=== PATIENT | female | born 1935 | race Caucasian/White ===

== ENCOUNTER 2019-05-03 15:19 | Emergency (ER) | payer MEDICARE ==
[~2019-05-03] VITALS: Ht 154.9 cm; Wt 57.6 kg
[~2019-05-03 15:19] MED LIST: FAMO-132; GLU850; INSU100V9; LEVO25TA11; LISI20TA; LOVA40TA75
[2019-05-03 16:25] VITALS: BP_SYST 118
--- NOTE | 2019-05-03 16:32 | NUR ---
Patient triaged and placed in waiting room. VSS and patient appears in no acute distress at this time. Accompanied by , awaiting available bed, and MD notified of need for MSE.
--- NOTE | 2019-05-03 22:17 | NUR ---
[facility] Side rails up. Report given to Mariza MIKE.
--- NOTE | 2019-05-03 22:21 | NUR ---
Patient was BIB and ambulated to ER H1, c/o Right hip pain s/p fall 4 or 5 days ago. Pt states she was getting out of bed and one of her foot got caught and patient fell onto Right hip. Pt denies hitting head and losing consciousness. Patient c/o of 8/10 pain. NO other injuries/complaints per patient or noted.
--- NOTE | 2019-05-03 23:50 | NUR ---
ER Dr. Thakkar at bedside examining patient.
--- NOTE | 2019-05-04 02:03 | NUR ---
Patient given written and verbal discharge instructions and verbalizes understanding. ER MD discussed with patient the results and treatment provided. Patient in stable condition. ID arm band removed. Rx of Naprosyn given. Patient educated on pain management and to follow up with PMD. Pain Scale 6/10. Opportunity for questions provided and answered. Medication side effect fact sheet provided.
[2019-05-04 02:04] VITALS: BP_SYST 112
== END 2019-05-04 02:04 | disposition home or self-care (01) ==
LOC: SED 15:19
DX: S76.011A Strain of muscle, fascia and tendon of right hip, initial encounter (principal); E11.9 Type 2 diabetes mellitus without complications; E07.9 Disorder of thyroid, unspecified; I10 Essential (primary) hypertension; Z90.710 Acquired absence of both cervix and uterus; Z79.899 Other long term (current) drug therapy; Z88.0 Allergy status to penicillin; Z88.2 Allergy status to sulfonamides; Z91.018 Allergy to other foods; W18.39XA Other fall on same level, initial encounter; Y93.89 Activity, other specified; Y92.89 Other specified places as the place of occurrence of the external cause; Y99.8 Other external cause status
CPT/HCPCS: 72170-TC; 72192-TC; 82962; 99284

== ENCOUNTER 2020-09-13 02:34 | Emergency (ER) | payer MEDICARE, SELFPAY ==
[~2020-09-13] VITALS: Ht 160 cm; Wt 49.0 kg
[2020-09-13 02:37] VITALS: BP_SYST 113
--- NOTE | 2020-09-13 02:39 | NUR ---
Note torres in ED - 09/13/20 at 0304 by SDEDGS Patient to ER bed 1 to [facility] for evaluation. Side rails up.
--- NOTE | 2020-09-13 02:39 | NUR ---
Patient to ER bed 1 to gown for evaluation. Side rails up.
--- NOTE | 2020-09-13 03:01 | NUR ---
COVID-19 swabs collected and sent to lab.
--- NOTE | 2020-09-13 03:03 | NUR ---
Nate macdonald in ED - 09/13/20 at 0304 by SDEDGS KOLTON Thakkar at bedside examining patient.
--- NOTE | 2020-09-13 03:03 | NUR ---
ER Dr. Thakkar at bedside examining patient.
--- NOTE | 2020-09-13 03:08 | NUR ---
Patient 's family at bedside.
--- NOTE | 2020-09-13 03:18 | NUR ---
In and out cath, urine sample collected and sent to lab.
--- NOTE | 2020-09-13 03:24 | NUR ---
BS 122
[2020-09-13 03:30] LABS: BASOPHILS % (AUTO) 0.4 % (0.0-2.0); EOSINOPHILS # (AUTO) 0.2 K/uL (0.0-0.4); EOSINOPHILS % (AUTO) 2.5 % (0.0-4.0); HEMATOCRIT 28.7 % (36-48); HEMOGLOBIN 9.4 g/dL (12.0-16.0); LYMPHOCYTES # (AUTO) 0.9 K/uL (1.0-5.5); LYMPHOCYTES % (AUTO) 15.4 % (20.5-51.5); MEAN CORPUSCULAR HEMOGLOBIN 33 pg (27-31); MEAN CORPUSCULAR HGB CONC 33 % (32-36); MEAN CORPUSCULAR VOLUME 100 fL (79.0-98.0); MONOCYTES # (AUTO) 0.4 K/uL (0.0-1.0); MONOCYTES % (AUTO) 6.9 % (1.7-9.3); NEUTROPHILS # (AUTO) 4.5 K/uL (1.8-7.7); NEUTROPHILS % (AUTO) 74.8 % (40.0-70.0); PLATELET COUNT (AUTO) 277 K/uL (130-430); RED BLOOD CELL COUNT(AUTO) 2.88 MIL/uL (4.2-6.2); WHITE BLOOD COUNT (AUTO) 6.1 K/uL (4.8-10.8)
--- NOTE | 2020-09-13 03:43 | NUR ---
CXR at bedside.
[2020-09-13 03:46] LABS: BILIRUBIN,URINE NEGATIVE (NEGATIVE); BLOOD, URINE 2+ (NEGATIVE); CLARITY/URINE CLEAR (CLEAR); COLOR,URINE YELLOW (YELLOW); GLUCOSE,URINE 2+ (NEGATIVE); KETONES,URINE NEGATIVE (NEGATIVE); LEUKOCYTE ESTERASE ,URINE NEGATIVE (NEGATIVE); NITRITE, URINE NEGATIVE (NEGATIVE); PH,URINE 6.5 (5.0-8.0); PROTEIN URINE NEGATIVE (NEGATIVE); UROBILINOGEN,URINE 0.2 (0.2-1.0)
[2020-09-13 03:47] LABS: ANION GAP 12 (5-15); CALCIUM 9.1 mg/dL (8.4-11.0); CHLORIDE 104 mmol/L (98-107); CREATININE 1.18 mg/dL (0.55-1.30); GLUCOSE 156 mg/dL (70-99); POTASSIUM 3.7 mmol/L (3.5-5.1); SODIUM SERUM 141 mmol/L (136-145); UREA NITROGEN, BLOOD 28 mg/dL (8-21)
[2020-09-13 03:51] LABS: PROTHROMBIN TIME 9.9 SECS (9.5-12.5)
[2020-09-13 03:53] LABS: BACTERIA,URINE FEW /HPF (None Seen); WBC,URINE 0-3 /HPF (0-3)
[2020-09-13 03:58] LABS: BARBITURATE, URINE NEGATIVE (NEG <=200); BENZODIAZEPINE, URINE NEGATIVE (NEG <=150); CANNABINOID, URINE NEGATIVE (NEG <=50); COCAINE, URINE NEGATIVE (NEG <=150); METHAMPHETAMINES SCREEN,URINE NEGATIVE (NEG <=500); OPIATE, URINE NEGATIVE (NEG <=100); PHENCYCLIDINE SCREEN,URINE NEGATIVE (NEG <=25); UR TRICYCLIC ANTIDEPRESSANTS NEGATIVE (NEG <=300); URINE AMPHETAMINE NEGATIVE (NEG <=500); URINE METHADONE NEGATIVE (NEG <=200); URINE OXYCODONE SCREEN NEGATIVE (NEG <=100); URINE PROPOXYPHENE SCREEN NEGATIVE (NEG <=300)
[2020-09-13 04:03] LABS: ALANINE AMINOTRANSFERASE 27 U/L (12-78); ALBUMIN 3.3 g/dL (3.4-4.8); ASPARTATE AMINOTRANSFERASE 36 U/L (10-37); THYROID STIMULATING HORMONE 0.65 uIu/mL (0.36-3.74); TOTAL BILIRUBIN 0.2 mg/dL (0.0-1.0)
[2020-09-13 04:06] LABS: ALCOHOL, BLOOD < 3 mg/dL (<10)
--- NOTE | 2020-09-13 04:17 | NUR ---
Patient came back from CT scan.
[2020-09-13] MEDS ORDERED: NACL 0.9% 1,000 ML IV ONE (04:30)
--- NOTE | 2020-09-13 04:31 | NUR ---
BS 76, Dr. Thakkar notified.
--- NOTE | 2020-09-13 04:34 | NUR ---
Given two orange juice, sanwiches, and Carlosllo.
[2020-09-13] MEDS ORDERED: D5NS 1,000 ML IV ONE (04:45)
--- NOTE | 2020-09-13 05:02 | NUR ---
Provide bedpan as request
--- NOTE | 2020-09-13 05:27 | NUR ---
Provide bedside commode as request.
--- NOTE | 2020-09-13 05:41 | NUR ---
BS- 163, Dr. Thakkar notified.
--- NOTE | 2020-09-13 05:51 | NUR ---
Patient to be transferred to [facility]. Is being transferred due to higher level of care. Receiving facility has accepting physician and available space. ER physician has signed transfer form. Patient or responsible constitution party has agreed to transfer and signed form. Patient belongings inventoried and will be sent with patient. Copy of nursing notes, lab reports, EKG, Physicians Orders and X-rays to be sent with patient. Report called to CEE Yanes at receiving facility. Receiving physician is Dr. Gates. [facility] ambulance service has been called for transfer. ETA is 40 mins.
--- NOTE | 2020-09-13 06:29 | NUR ---
Patient will transfer to [facility] via [facility].
[2020-09-13 06:30] VITALS: BP_SYST 132
== END 2020-09-13 06:29 | disposition short-term general hospital (02) ==
LOC: SED 02:34
DX: E11.649 Type 2 diabetes mellitus with hypoglycemia without coma (principal); E87.2 Acidosis; I10 Essential (primary) hypertension; Z79.84 Long term (current) use of oral hypoglycemic drugs; Z79.899 Other long term (current) drug therapy; Z20.822 Contact with and (suspected) exposure to COVID-19; Z88.0 Allergy status to penicillin; Z88.2 Allergy status to sulfonamides; Z91.018 Allergy to other foods
CPT/HCPCS: 36415; 70450; 71045; 76376; 80053; 80307; 81000; 82962; 83605; 84439; 84443; 84484; 85025; 85610; 85730; 87040; 87086; 87426; 93005; 96374; 99285; G0482; J7060

== ENCOUNTER 2022-04-29 12:53 | Emergency (ER) | payer MEDICARE ==
[~2022-04-29] VITALS: Ht 152.4 cm; Wt 54.4 kg
[2022-04-29 13:36] VITALS: BP_SYST 144
--- NOTE | 2022-04-29 13:40 | NUR ---
Patient triaged and placed in waiting room. VSS and patient appears in no acute distress at this time. Accompanied by , awaiting available bed, and MD notified of need for MSE.
--- NOTE | 2022-04-29 15:15 | NUR ---
ER DR. RIVERA EXAMINING PT
[2022-04-29] MEDS ORDERED: IBUPROFEN 600 MG TABLET PO ONE (15:30)
[2022-04-29] MEDS ORDERED: HYDROcodone/ACETAMIN 5-325 MG TAB (NORCO/ VICODIN) PO ONE (15:30)
[2022-04-29 16:28] LABS: BASOPHILS # (AUTO) 0.1 K/uL (0.0-0.2); BASOPHILS % (AUTO) 0.8 % (0.0-2.0); EOSINOPHILS # (AUTO) 0.2 K/uL (0.0-0.4); EOSINOPHILS % (AUTO) 3.3 % (0.0-4.0); HEMATOCRIT 36.9 % (36-48); HEMOGLOBIN 12.5 g/dL (12.0-16.0); LYMPHOCYTES # (AUTO) 2.2 K/uL (1.0-5.5); LYMPHOCYTES % (AUTO) 31.3 % (20.5-51.5); MEAN CORPUSCULAR HEMOGLOBIN 33 pg (27-31); MEAN CORPUSCULAR HGB CONC 34 % (32-36); MEAN CORPUSCULAR VOLUME 96 fL (79.0-98.0); MONOCYTES # (AUTO) 0.6 K/uL (0.0-1.0); MONOCYTES % (AUTO) 8.6 % (1.7-9.3); NEUTROPHILS # (AUTO) 3.9 K/uL (1.8-7.7); PLATELET COUNT (AUTO) 263 K/uL (130-430); RED BLOOD CELL COUNT(AUTO) 3.84 MIL/uL (4.2-6.2); RED CELL DISTRIBUTION WIDTH 12.9 % (9.0-15.0); WHITE BLOOD COUNT (AUTO) 6.9 K/uL (4.8-10.8)
[2022-04-29 16:38] LABS: ANION GAP 12 (5-15); CALCIUM 10.1 mg/dL (8.4-11.0); CHLORIDE 100 mmol/L (98-107); CREATININE 1.25 mg/dL (0.55-1.30); GLUCOSE 239 mg/dL (70-99); UREA NITROGEN, BLOOD 35 mg/dL (8-21)
[2022-04-29 16:44] LABS: ALANINE AMINOTRANSFERASE 46 U/L (12-78); ALBUMIN 4.2 g/dL (3.4-4.8); ASPARTATE AMINOTRANSFERASE 26 U/L (10-37); TOTAL BILIRUBIN 0.7 mg/dL (0.0-1.0)
[2022-04-29 16:48] LABS: C-REACTIVE PROTEIN QUANT < 0.2 mg/dL (0-0.5)
--- NOTE | 2022-04-29 17:30 | NUR ---
Patient to ER bed CH1 to gown for evaluation. Side rails up.
[2022-04-29] MEDS ORDERED: IBUP-1969 PO (17:39)
[2022-04-29] MEDS ORDERED: HYDR-3917 PO (17:39)
[2022-04-29] MEDS ORDERED: HYDROcodone/ACETAMIN 5-325 MG TAB (NORCO/ VICODIN) ONE (17:47)
[2022-04-29] MEDS ORDERED: IBUPROFEN 600 MG TABLET ONE (17:49)
[2022-04-29 18:37] VITALS: BP_SYST 144
--- NOTE | 2022-04-29 18:37 | NUR ---
Patient given written and verbal discharge instructions and verbalizes understanding. ER MD discussed with patient the results and treatment provided. Patient in stable condition. ID arm band removed. IV catheter removed intact and dressing applied, no active bleeding. Rx of NORCO AND IBUPROFEN given. Patient educated on pain management and to follow up with PMD. Pain Scale 0/10. Opportunity for questions provided and answered. Medication side effect fact sheet provided.
== END 2022-04-29 18:37 | disposition home or self-care (01) ==
LOC: SED 12:53
DX: S13.4XXA Sprain of ligaments of cervical spine, initial encounter (principal); E78.5 Hyperlipidemia, unspecified; E10.9 Type 1 diabetes mellitus without complications; I10 Essential (primary) hypertension; Z88.0 Allergy status to penicillin; Z88.2 Allergy status to sulfonamides; Z91.018 Allergy to other foods; Z79.899 Other long term (current) drug therapy; W01.0XXA Fall on same level from slipping, tripping and stumbling without subsequent striking against object, initial encounter; Y93.89 Activity, other specified; Y92.89 Other specified places as the place of occurrence of the external cause; Y99.8 Other external cause status
CPT/HCPCS: 36415; 72125-TC; 76376; 80053; 85025; 86140; 99284

== ENCOUNTER 2022-11-02 11:14 | Emergency (ER) | payer MEDICARE ==
[~2022-11-02] VITALS: Ht 162.6 cm; Wt 56.7 kg
[~2022-11-02 11:14] MED LIST changes: +HYDR-3917 PO; +IBUP-1969 PO
[2022-11-02 11:17] VITALS: BP_SYST 178; PULSE 96; RESP 24; TEMP 98.3; O2SAT 95
[2022-11-02] MEDS ORDERED: BACITRACIN 1 GM OINT TP ONE ×3 (11:38→12:00)
[2022-11-02] MEDS ORDERED: DIPHTH,PERTUSS(ACELL),TET VAC 0.5 ML VIAL (Tdap) I.M. ONE (12:00)
[2022-11-02 12:12] LABS: ANION GAP 10 (5-15); CALCIUM 9.5 mg/dL (8.4-11.0); CARBON DIOXIDE 27 mmol/L (23-29); CHLORIDE 99 mmol/L (98-107); CREATININE 1.27 mg/dL (0.55-1.30); GLUCOSE 185 mg/dL (74-106); POTASSIUM 4.5 mmol/L (3.5-5.1); SODIUM SERUM 136 mmol/L (136-145); UREA NITROGEN, BLOOD 30 mg/dL (8-21)
[2022-11-02 12:14] LABS: BASOPHILS # (AUTO) 0.1 K/uL (0.0-0.2); EOSINOPHILS # (AUTO) 0.2 K/uL (0.0-0.4); EOSINOPHILS % (AUTO) 3.1 % (0.0-4.0); HEMATOCRIT 39.3 % (36-48); HEMOGLOBIN 13.1 g/dL (12.0-16.0); LYMPHOCYTES # (AUTO) 1.6 K/uL (1.0-5.5); LYMPHOCYTES % (AUTO) 24.7 % (20.5-51.5); MEAN CORPUSCULAR HEMOGLOBIN 31 pg (27-31); MEAN CORPUSCULAR HGB CONC 33 % (32-36); MEAN CORPUSCULAR VOLUME 93 fL (79.0-98.0); MONOCYTES # (AUTO) 0.5 K/uL (0.0-1.0); NEUTROPHILS % (AUTO) 63.2 % (40.0-70.0); PLATELET COUNT (AUTO) 287 K/uL (130-430); RED BLOOD CELL COUNT(AUTO) 4.24 MIL/uL (4.2-6.2); RED CELL DISTRIBUTION WIDTH 13.1 % (9.0-15.0); WHITE BLOOD COUNT (AUTO) 6.4 K/uL (4.8-10.8)
[2022-11-02 12:19] LABS: ALANINE AMINOTRANSFERASE 42 U/L (12-78); ALBUMIN 4.1 g/dL (3.4-4.8); ASPARTATE AMINOTRANSFERASE 26 U/L (10-37); TOTAL BILIRUBIN 0.8 mg/dL (0.0-1.0); TOTAL PROTEIN, SERUM 8.2 g/dL (6.4-8.3)
[2022-11-02 12:25] LABS: ACETONE, SERUM NEGATIVE (NEGATIVE)
[2022-11-02] MEDS ORDERED: HYDR-3927 PO (13:20)
[2022-11-02] MEDS ORDERED: IBUP-2018 PO (13:20)
[2022-11-02 14:00] VITALS: BP_SYST 135; PULSE 86; RESP 16; TEMP 98.5; O2SAT 98
== END 2022-11-02 13:47 | disposition home or self-care (01) ==
LOC: SED 11:14
DX: S92.411A Displaced fracture of proximal phalanx of right great toe, initial encounter for closed fracture (principal); S01.112A Laceration without foreign body of left eyelid and periocular area, initial encounter; S40.012A Contusion of left shoulder, initial encounter; E10.9 Type 1 diabetes mellitus without complications; I10 Essential (primary) hypertension; Z88.0 Allergy status to penicillin; Z88.2 Allergy status to sulfonamides; Z91.018 Allergy to other foods; Z79.4 Long term (current) use of insulin; Z79.899 Other long term (current) drug therapy; W18.40XA Slipping, tripping and stumbling without falling, unspecified, initial encounter; Y93.89 Activity, other specified; Y92.89 Other specified places as the place of occurrence of the external cause; Y99.8 Other external cause status
CPT/HCPCS: 36415; 70450-TC; 73030; 76376; 80053; 82009; 83605; 84484; 85025; 99284

== ENCOUNTER 2023-04-17 13:04 | Emergency (ER) | payer MEDICARE ==
[~2023-04-17] VITALS: Ht 157.5 cm; Wt 45.4 kg
[~2023-04-17 13:04] MED LIST changes: +HYDR-3927 PO; +IBUP-2018 PO
[2023-04-17 13:10] VITALS: BP_SYST 141; PULSE 88; RESP 18; TEMP 98.2; O2SAT 97
[2023-04-17 14:35] LABS: BASOPHILS % (AUTO) 0.2 % (0.0-2.0); EOSINOPHILS # (AUTO) 0.2 K/uL (0.0-0.4); EOSINOPHILS % (AUTO) 1.9 % (0.0-4.0); HEMATOCRIT 37.7 % (36-48); HEMOGLOBIN 12.6 g/dL (12.0-16.0); LYMPHOCYTES # (AUTO) 1.1 K/uL (1.0-5.5); LYMPHOCYTES % (AUTO) 14.3 % (20.5-51.5); MEAN CORPUSCULAR HEMOGLOBIN 32 pg (27-31); MEAN CORPUSCULAR HGB CONC 34 % (32-36); MEAN CORPUSCULAR VOLUME 95 fL (79.0-98.0); MONOCYTES # (AUTO) 0.6 K/uL (0.0-1.0); MONOCYTES % (AUTO) 7.3 % (1.7-9.3); NEUTROPHILS # (AUTO) 6.1 K/uL (1.8-7.7); NEUTROPHILS % (AUTO) 76.3 % (40.0-70.0); PLATELET COUNT (AUTO) 281 K/uL (130-430); RED BLOOD CELL COUNT(AUTO) 3.98 MIL/uL (4.2-6.2); RED CELL DISTRIBUTION WIDTH 13.9 % (9.0-15.0)
[2023-04-17 14:48] LABS: ANION GAP 7 (5-15); CALCIUM 10.5 mg/dL (8.4-11.0); CARBON DIOXIDE 26 mmol/L (23-29); CHLORIDE 99 mmol/L (98-107); CREATININE 1.43 mg/dL (0.55-1.30); GLUCOSE 229 mg/dL (74-106); POTASSIUM 4.4 mmol/L (3.5-5.1); SODIUM SERUM 132 mmol/L (136-145); UREA NITROGEN, BLOOD 29 mg/dL (8-21)
[2023-04-17 14:51] LABS: PROTHROMBIN TIME 9.9 SECS (9.5-12.5)
[2023-04-17 14:55] LABS: ALANINE AMINOTRANSFERASE 40 U/L (12-78); ASPARTATE AMINOTRANSFERASE 21 U/L (10-37); BILIRUBIN,DIRECT 0.2 mg/dL (0.0-0.3); CREATINE KINASE, TOTAL 241 U/L (26-192); TOTAL BILIRUBIN 1.2 mg/dL (0.0-1.0); TOTAL PROTEIN, SERUM 7.7 g/dL (6.4-8.3)
[2023-04-17] MEDS ORDERED: ACETAMINOPHEN 500 MG TABLET PO ONE (15:15)
[2023-04-17 15:21] LABS: CKMB RELATIVE INDEX 2.2 (0.0-2.9); CREATINE KINASE MB 5.4 ng/mL (0-3.6)
[2023-04-17] MEDS ORDERED: DIPHTH,PERTUSS(ACELL),TET VAC 0.5 ML VIAL (Tdap) I.M. ONE (16:00)
[2023-04-17] MEDS ORDERED: BACITRACIN 1 GM OINT TP ONE (16:00)
[2023-04-17] MEDS ORDERED: HYDROcodone/ACETAMIN 5-325 MG TAB (NORCO/ VICODIN) PO ONE (17:45)
[2023-04-17 18:00] VITALS: BP_SYST 141; PULSE 88; RESP 18; TEMP 98.2; O2SAT 97
== END 2023-04-17 18:00 | disposition short-term general hospital (02) ==
LOC: SED 13:04
DX: S02.2XXA Fracture of nasal bones, initial encounter for closed fracture (principal); S82.035A Nondisplaced transverse fracture of left patella, initial encounter for closed fracture; R27.0 Ataxia, unspecified; E10.9 Type 1 diabetes mellitus without complications; I10 Essential (primary) hypertension; E78.5 Hyperlipidemia, unspecified; Z88.0 Allergy status to penicillin; Z88.2 Allergy status to sulfonamides; Z91.018 Allergy to other foods; Z79.899 Other long term (current) drug therapy; W01.0XXA Fall on same level from slipping, tripping and stumbling without subsequent striking against object, initial encounter; Y93.89 Activity, other specified; Y92.89 Other specified places as the place of occurrence of the external cause; Y99.8 Other external cause status
CPT/HCPCS: 36415; 70450-TC; 70486; 72125-TC; 73560; 76376; 80048; 80076; 82550; 82553; 82948; 83605; 84484; 85025; 85610; 85730; 93005; 99285